=== PATIENT | male | born 1975 | race American Indian/Alaskan Native ===

== ENCOUNTER 2018-08-23 20:55 | Emergency (ER) | payer OTHER ==
[2018-08-23] MEDS ORDERED: ATROVENT IH ONE (21:02)
[2018-08-23] MEDS ORDERED: PROVENTIL IH ONE (21:02)
[2018-08-23] MEDS ORDERED: DECADRON IM ONE (21:04)
--- NOTE | 2018-08-23 21:04 | Emergency Department Report ---
Blank Doc - Documentation Documentation: This is a 42-year-old male that presents with wheezing and SOB. This initial assessment/diagnostic orders/clinical plan/treatment(s) is/are subject to change based on patient's health status, clinical progression and re- assessment by fellow clinical providers in the ED. Further treatment and workup at subsequent clinical providers discretion. Patient/guardians urged not to elope from the ED as their condition may be serious if not clinically assessed and managed. Initial orders include: 1- Patient sent to [facility] for further evaluation and treatment 2- breathing treatment/steroids 3- CXR
--- NOTE | 2018-08-23 21:27 | Emergency Department Report ---
ED Shortness of Breath HPI - General Chief Complaint: Dyspnea/Respdistress Stated Complaint: CHEST TIGHT SOB WHEEZING Time Seen by Provider: 08/23/18 21:00 Source: patient Mode of arrival: Ambulatory Limitations: No Limitations - History of Present Illness Initial Comments: 45-year-old male with history of COPD presents to the ED with shortness of breat h and wheezing, onset earlier today. Patient states he was at work, and did not have his inhaler and was not able to administer nebulizer treatment. Patient reports dry cough, no fever. MD Complaint: shortness of breath -: days(s) (1) Severity: moderate Consistency: constant Improves With: nothing Worsens With: exertion Known History Of: COPD Associated Symptoms: chest pain, cough Treatments Prior to Arrival: none - Related Data Home Oxygen Therapy: No Previous Rx's Medication Instructions Recorded Last Taken Type Albuterol Sulfate [Proventil Hfa] 2 puff IH Q4HR PRN #1 hfa.aer.ad 08/23/18 Unknown Rx predniSONE [Deltasone] 50 mg PO QDAY #5 tab 08/23/18 Unknown Rx Allergies Allergy/AdvReac Type Severity Reaction Status Date / Time No Known Allergies Allergy Unverified 08/23/18 20:56 ED Review of Systems ROS: Stated complaint: CHEST TIGHT SOB WHEEZING Other details as noted in HPI Comment: All other systems reviewed and negative Constitutional: denies: chills, fever Respiratory: cough, shortness of breath, wheezing Cardiovascular: chest pain Gastrointestinal: denies: nausea, vomiting ED Past Medical Hx - Past Medical History Hx COPD: Yes - Surgical History Past Surgical History?: Yes Hx Appendectomy: Yes - Social History Smoking Status: Never Smoker Substance Use Type: None - Medications Home Medications: Home Medications Medication Instructions Recorded Confirmed Last Taken Type Albuterol Sulfate [Proventil Hfa] 2 puff IH Q4HR PRN #1 hfa.aer.ad 08/23/18 Unknown Rx predniSONE [Deltasone] 50 mg PO QDAY #5 tab 08/23/18 Unknown Rx ED Physical Exam - General Limitations: No Limitations General appearance: alert - Head Head exam: Present: atraumatic, normocephalic - Eye Eye exam: Present: normal appearance - ENT ENT exam: Present: mucous membranes moist - Neck Neck exam: Present: normal inspection - Respiratory Respiratory exam: Present: respiratory distress (mild), wheezes - Cardiovascular Cardiovascular Exam: Present: regular rate, normal rhythm - GI/Abdominal GI/Abdominal exam: Absent: distended - Extremities Exam Extremities exam: Present: normal inspection - Neurological Exam Neurological exam: Present: alert, oriented X3 - Psychiatric Psychiatric exam: Present: normal affect, normal mood - Skin Skin exam: Present: warm, dry, intact, normal color ED Course Vital Signs 08/23/18 08/23/18 08/23/18 20:59 23:03 23:06 Temperature 99.3 F Pulse Rate 94 H 97 H Respiratory 18 17 24 Rate Blood Pressure 136/78 Blood Pressure 118/73 [Left] O2 Sat by Pulse 97 97 98 Oximetry ED Medical Decision Making - Radiology Data Radiology results: report reviewed, image reviewed - Medical Decision Making 42 yo M w/ COPD exacerbation. Diffuse wheezing on exam initially. Pt given decardron, one hour neb treatment. Wheezing improved. Pt feeling much better. O2 sats normal. CXR unremarkable. Outpatient follo-up advised. Return precautions given. - Differential Diagnosis COPD, pneumonia, pulm edema Critical care attestation.: If time is entered above; I have spent that time in minutes in the direct care of this critically ill patient, excluding procedure time. ED Disposition Clinical Impression: COPD with acute exacerbation Disposition: - TO HOME OR SELFCARE Is pt being admited?: No Condition: Stable Instructions: Chronic Obstructive Pulmonary Disease (ED) Prescriptions: predniSONE [Deltasone] 50 mg PO QDAY #5 tab Albuterol Sulfate [Proventil Hfa] 2 puff IH Q4HR PRN #1 hfa.aer.ad PRN Reason: Wheezing Referrals: [facility] [Other] - 3-5 Days
--- NOTE | 2018-08-23 23:02 | XRay Report ---
PROCEDURE: XR CHEST ROUTINE 2V TECHNIQUE: PA and lateral chest radiographs were obtained. HISTORY: Dyspnea COMPARISONS: None. FINDINGS: Heart: Normal. Mediastinum/Vessels: Normal. Lungs/Pleural space: Normal. Bony thorax: No acute osseous abnormality. IMPRESSION: Normal examination. This document is electronically signed by Wolf Tanner MD., Aug 23 2018 11:00:26 PM ET
[2018-08-23 23:27] VITALS: BP 118/73
== END 2018-08-24 00:26 | disposition home or self-care (01) ==
LOC: ED 20:55
DX: J44.1 Chronic obstructive pulmonary disease with (acute) exacerbation (principal); Z90.49 Acquired absence of other specified parts of digestive tract
CPT/HCPCS: 71046; 96372; 99283; J1100; 94640

== ENCOUNTER 2019-01-03 15:20 | Emergency (ER) | payer OTHER ==
--- NOTE | 2019-01-03 20:42 | Emergency Department Report ---
Abscess Boil HPI - HPI Chief Complaint: Extremity Injury, Lower Stated Complaint: RT LEG PAIN/SWOLLEN Time Seen by Provider: 01/03/19 18:56 Duration: 2 Days Location: Lower Extremity (right) Severity: Moderate History: No Fever, No Pain, No Purulent Drainage, No Numbness, No Foreign Body, No Previous History, No Insect Bite HPI: This is a 43-year-old -[place] male who presents to the emergency room with redness and mild swelling of right knee for 2 days. Patient states he was age initially bitten by something. Patient states he had a small ball on his right knee that progressed over 2 days. Patient states he noticed swelling and redness to right knee. He denies injury, drainage, numbness or tingling, fever, drooling, or dyspnea, or chills. Home Medications: Previous Rx's Medication Instructions Recorded Last Taken Type Albuterol Sulfate [Proventil Hfa] 2 puff IH Q4HR PRN #1 hfa.aer.ad 08/23/18 Unknown Rx predniSONE [Deltasone] 50 mg PO QDAY #5 tab 08/23/18 Unknown Rx Clindamycin [Clindamycin CAP] 300 mg PO Q8H #21 cap 01/03/19 Unknown Rx Ibuprofen [Motrin 800 MG tab] 800 mg PO Q8HR PRN #20 tablet 01/03/19 Unknown Rx Allergies/Adverse Reactions: Allergies Allergy/AdvReac Type Severity Reaction Status Date / Time No Known Allergies Allergy Unverified 08/23/18 20:56 ED Review of Systems ROS: Stated complaint: RT LEG PAIN/SWOLLEN Other details as noted in HPI Constitutional: denies: chills, fever Respiratory: denies: cough, shortness of breath, wheezing Cardiovascular: denies: chest pain, palpitations Gastrointestinal: denies: abdominal pain, nausea, diarrhea Skin: lesions (abscess to right knee). denies: rash Neurological: denies: headache, weakness, paresthesias Psychiatric: denies: anxiety, depression ED Past Medical Hx - Past Medical History Hx COPD: Yes - Surgical History Hx Appendectomy: Yes - Social History Smoking Status: Current Every Day Smoker Substance Use Type: None - Medications Home Medications: Home Medications Medication Instructions Recorded Confirmed Last Taken Type Albuterol Sulfate [Proventil Hfa] 2 puff IH Q4HR PRN #1 hfa.aer.ad 08/23/18 Unknown Rx predniSONE [Deltasone] 50 mg PO QDAY #5 tab 08/23/18 Unknown Rx Clindamycin [Clindamycin CAP] 300 mg PO Q8H #21 cap 01/03/19 Unknown Rx Ibuprofen [Motrin 800 MG tab] 800 mg PO Q8HR PRN #20 tablet 01/03/19 Unknown Rx ED Abscess Boil Physical Exam - Exam General: Vital signs noted. No distress. Alert and acting appropriately. Front/Back of Body, Lg (Color): 1 - 1 cm non-fluctuant nodule to right anterior patella, surrounding erythema, tenderness, no drainage, FROM Size: 2 cm Exam: Yes Tenderness, Yes Surrounding Cellulites/Erythema, Yes Normal Neurologic Exam, Yes Normal Circulation, No Fluctuance, No Lymphangitis, No Crepitation, No Heart Murmur ED Course Vital Signs 01/03/19 15:41 Temperature 99.7 F H Pulse Rate 102 H Respiratory 17 Rate Blood Pressure 109/67 O2 Sat by Pulse 98 Oximetry Critical care attestation.: If time is entered above; I have spent that time in minutes in the direct care of this critically ill patient, excluding procedure time. ED Medical Decision Making - Medical Decision Making This is a 43 y.o. male that presents with a painful abscess to right anterior patella for 2 days. No history of prior abscess. Patient is stable and examined by me. Physical assessment of 1 cm non-fluctuance nodule to right anterior patella. No acute signs of distress noted. I&D not indicated at this time. Discussed plan to start clindamycin and ibuprofen with patient. Area marked and instructed to monitor for spreading of erythema. Educated patient on follow up plan to havewound reassessed in 2-3 days. Patient agrees to ED plan of care. Discharged home and follow up with PCP in 2-3 days. ED Disposition Clinical Impression: Abscess Cellulitis Qualifiers: Site of cellulitis: extremity Site of cellulitis of extremity: lower extremity Laterality: right Qualified Code(s): L03.115 - Cellulitis of right lower limb Disposition: TO HOME OR SELFCARE Is pt being admited?: No Does the pt Need Aspirin: No Condition: Stable Instructions: Cellulitis (ED), Abscess (ED) Additional Instructions: Keep packing in place for 2-3 days. Complete full round of antibiotic as prescribed. Follow up with PCP in 3-5 days to monitor wound. Return to ER if foul smelling discharge, swelling, or severe pain to wound. Prescriptions: Clindamycin [Clindamycin CAP] 300 mg PO Q8H #21 cap Ibuprofen [Motrin 800 MG tab] 800 mg PO Q8HR PRN #20 tablet PRN Reason: Pain , Severe (7-10) Referrals: [facility] [Outside] - 3-5 Days [facility] [Provider Group] - 3-5 Days Forms: Work/School Release Form(ED) Time of Disposition: 20:44
[2019-01-03 21:17] VITALS: BP 118/70
== END 2019-01-03 21:04 | disposition home or self-care (01) ==
LOC: ED 15:20
DX: L02.415 Cutaneous abscess of right lower limb (principal); L03.115 Cellulitis of right lower limb; J44.9 Chronic obstructive pulmonary disease, unspecified; F17.200 Nicotine dependence, unspecified, uncomplicated; Z90.49 Acquired absence of other specified parts of digestive tract; Z79.899 Other long term (current) drug therapy